=== PATIENT | female | born 1955 | race Caucasian/White ===

== ENCOUNTER → 2020-08-07 | Outpatient (CLI) | payer MEDICARE, OTHER ==
[~2020-08-07] MED LIST: ADVAIR 250-501 EACH INH; CALCIUM600 MG PO; CELEBREX200 MG PO; COZAAR50 MG PO; DETROL LA4 MG PO; FISH OIL 1,2001 EAC1 PO; FLEXERIL 10 MG10 MG PO; FLOVENT DISKUS50 MCG INH; MONTELUKAST SOD10 MG PO; MUCOSA400 MG PO; NEURONTIN 100100 MG PO; OMEPRAZOLE20 MG PO; OMNICEF 300 MG300 MG PO; THEO-DUR 300 M300 MG PO; TRAZODONE HCL50 MG PO; VENTOLIN HFA 66.7 GM INH; ZITHROMAX250 MG PO; ZOVIRAX 800 MG800 MG PO; ZYRTEC10 M3 PO
== END ==
LOC: KOH-I 08-03 10:00
DX: R51.9 Headache, unspecified (principal)
CPT/HCPCS: 70450